=== PATIENT | female | born 1935 | race Caucasian/White ===

== ENCOUNTER 2018-02-18 17:41 | Observation (INO) | payer MEDICARE, OTHER ==
[2018-02-18] MEDS ORDERED: Aspirin 81 MG Tab.Chew PO ONE (18:19)
[2018-02-18] MEDS ORDERED: Alum Hydrox/Mag Hydrox/Simeth 30 ML, Lidocaine 2% 15 ML PO ONE ×2 (18:19)
[2018-02-18] MEDS ORDERED: Sodium Chloride 0.9% 10 ML Syringe FLUSH PRN (18:19)
--- NOTE | 2018-02-18 18:24 | EDM.PDOC ---
ED HPI GENERAL MEDICAL PROBLEM - General Chief Complaint: Chest Pain Stated Complaint: NOT FEELING GOOD TODAY Time Seen by Provider: 02/18/18 18:06 Source of Information: Reports: Patient History Limitations: Reports: No Limitations - History of Present Illness INITIAL COMMENTS - FREE TEXT/NARRATIVE: Patient is a 82-year-old female with a history of quadruple bypass who presents ED complaining of development of epigastric pressure, nausea, and fluttering sensation to her chest. She states symptoms started this morning at about 6:00 when she awoke. She's felt ill and notes that symptoms have not drastically improved throughout the course of the day. She has had a faint pressure noted to her chest. But with evaluation to the ED she has a fluttering sensation to her chest and some mild epigastric pain. She does complain of some acid reflux. Pain is not worsened with exertion, eating/drinking, palpitation, and/or taking a deep breath. At first she was unsure what the pain was from and/or leg. She questions the symptoms she currently experiencing are similar to previous heart attack that took place 10 years ago prior to bypass. She has taken all her home medications as prescribed. See list. There is no shortness of breath, radiation of pain, diarrhea, increased flatulence glass burping, dysuria, increased swelling or weight gain, PND/orthopnea, or palpitations at this time. Chest Pain Score (Numeric/FACES): 5 - Related Data Allergies Allergy/AdvReac Type Severity Reaction Status Date / Time atorvastatin [From Lipitor] Allergy Muscle Verified 02/18/18 22:40 Weakness Penicillins Allergy Rash Verified 02/18/18 22:40 ramipril Allergy Cough Verified 02/18/18 22:40 Sulfa (Sulfonamide Allergy Rash Verified 02/18/18 22:40 Antibiotics) Home Meds: Home Meds Aspirin [Shaylee Chewable Aspirin] 81 mg PO BEDTIME 01/08/14 [History] Cetirizine [ZyrTEC] 10 mg PO DAILY 01/08/14 [History] Clopidogrel [Plavix] 75 mg PO DAILY 01/08/14 [History] Isosorbide Mononitrate [Imdur] 30 mg PO DAILY 01/08/14 [History] LORazepam [Ativan] 0.5 mg PO Q8HR PRN 01/16/15 [History] Cholecalciferol (Vitamin D3) [Vitamin D3] 2,000 unit PO DAILY 05/09/16 [History] Metoprolol Tartrate 100 mg PO BID 05/09/16 [History] traMADol HCl [Tramadol HCl] 50 mg PO BID PRN 05/09/16 [History] Pantoprazole Sodium [Protonix] 40 mg PO DAILY #90 suspdr.pkt 05/10/16 [Rx] Ubidecarenone [Co Q-10] 100 mg PO DAILY 02/18/18 [History] Biotin [Hard Nails] 5,000 mcg PO DAILY 02/19/18 [History] Furosemide 10 mg PO DAILY 02/19/18 [History] Past Medical History HEENT History: Reports: Cataract, Impaired Vision Other HEENT History: wears glasses Cardiovascular History: Reports: Bypass, High Cholesterol, Hypertension, [place] Other Cardiovascular History: 4 vessel 2007 Gastrointestinal History: Reports: Chronic Constipation, Diverticulosis, GERD, Hemorrhoids, Hiatal Hernia, Other (See Below) Other Gastrointestinal History: nausea Genitourinary History: Reports: Urinary Incontinence BRAILLE CODER History: Reports: Other BRAILLE CODER History: cystocele Neurological History: Reports: CVA, Other (See Below) Other Neuro History: 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 - Infectious Disease History Infectious Disease History: Reports: Chicken Pox, Shingles - Past Surgical History HEENT Surgical History: Reports: Cataract Surgery Cardiovascular Surgical History: Reports: Coronary Artery Bypass, Varicose Musculoskeletal Surgical History: Reports: Other (See Below) Social & Family History - Tobacco Use Smoking Status *Q: Never Smoker - Caffeine Use Caffeine Use: Reports: Coffee - Recreational Drug Use Recreational Drug Use: No - Living Situation & Occupation Living situation: Reports: Occupation: Retired ED ROS GENERAL - Review of Systems Review Of Systems: ROS reveals no pertinent complaints other than HPI. ED EXAM, GENERAL - Physical Exam Exam: See Below Exam Limited By: No Limitations General Appearance: Alert, WD/WN, Mild Distress Ears: Hearing Grossly Normal Nose: Normal Inspection Throat/Mouth: Normal Inspection, Normal Oropharynx, Normal Voice, No Airway Compromise Neck: Normal Inspection, Supple, Non-Tender, Full Range of Motion Respiratory/Chest: No Respiratory Distress, Lungs Clear, Normal Breath Sounds, No Accessory Muscle Use, Chest Non-Tender Cardiovascular: Normal Peripheral Pulses, Regular Rate, Rhythm, No Murmur Peripheral Pulses: 0: Radial (R) (Radial harvest for CABG.), 2+: Radial (L) GI/Abdominal: Normal Bowel Sounds, Soft, No Organomegaly, No Distention, Tender (Faint tenderness to the epigastric region.) Back Exam: Normal Inspection Extremities: Normal Inspection, Normal Range of Motion, Non-Tender, No Pedal Edema, Normal Capillary Refill Neurological: Alert, Oriented, CN II-XII Intact, Normal Cognition, No Motor/ Sensory Deficits Psychiatric: Normal Affect, Normal Mood Skin Exam: Warm, Dry, Intact, Normal Color, No Rash Course - Vital Signs Last Recorded V/S: Last Vital Signs Temp 98.4 F 02/19/18 07:46 Pulse 78 02/19/18 10:08 Resp 18 02/19/18 05:05 BP 142/57 H 02/19/18 10:08 Pulse Ox 95 02/19/18 07:46 - Orders/Labs/Meds Orders: Active Orders 24 hr Category Date Time Status Patient Status [ADT] Routine ADT 02/18/18 20:29 Active Abdomen Series w Chest 1V [CR] Stat Exams 02/18/18 18:18 Taken CULTURE URINE [RM] Stat Lab 02/18/18 19:13 Ordered Sodium Chloride 0.9% [Saline Flush] Med 02/18/18 18:19 Active 10 ml FLUSH ASDIRECTED PRN Peripheral IV Insertion Adult [OM.PC] Routine Oth 02/18/18 18:19 Ordered Medication Orders Acetaminophen (Tylenol) 650 mg PO Q6H PRN PRN Reason: Pain/Fever Al Hydroxide/Mg Hydroxide (Mag-Al Plus) 30 ml PO Q4H PRN PRN Reason: Heartburn Last Admin: 02/19/18 02:00 Dose: 30 ml Aspirin (Halfprin) 81 mg PO BEDTIME TAWNYA Last Admin: 02/18/18 21:52 Dose: 81 mg Clopidogrel Bisulfate (Plavix) 75 mg PO DAILY TAWNYA Last Admin: 02/19/18 10:11 Dose: 75 mg Hydralazine HCl (Apresoline) 20 mg IVPUSH Q6H PRN PRN Reason: Hypertension Last Admin: 02/19/18 08:19 Dose: 20 mg Loratadine (Claritin) 10 mg PO DAILY [facility] Last Admin: 02/19/18 10:08 Dose: 10 mg Lorazepam (Ativan) 0.5 mg IVPUSH Q12H PRN PRN Reason: Anxiety Lorazepam (Ativan) 0.5 mg PO TID [facility] Last Admin: 02/19/18 10:11 Dose: 0.5 mg Metoprolol Tartrate (Lopressor) 100 mg PO BID [facility] Last Admin: 02/19/18 10:08 Dose: 100 mg Admin: 02/18/18 21:52 Dose: 100 mg Morphine Sulfate (Morphine) 1 mg IVPUSH Q8H PRN PRN Reason: Pain (moderate 4-6) Nitroglycerin (Nitrostat) 0.4 mg SL Q5M PRN PRN Reason: Chest Pain Ondansetron HCl (Zofran) 4 mg IVPUSH Q8H PRN PRN Reason: Nausea/Vomiting Pantoprazole Sodium (Protonix) 40 mg PO DAILY@0700 [facility] Last Admin: 02/19/18 06:31 Dose: 40 mg Sodium Chloride (Saline Flush) 10 ml FLUSH ASDIRECTED PRN PRN Reason: Keep Vein Open Last Admin: 02/18/18 18:33 Dose: 10 ml Temazepam (Restoril) 7.5 mg PO BEDTIME PRN PRN Reason: Insomnia Tramadol HCl (Ultram) 50 mg PO BID PRN PRN Reason: Pain Labs: Laboratory Tests 02/18/18 02/18/18 02/18/18 Range/Units 18:20 18:20 18:20 WBC 5.52 (3.98-10.04) K/mm3 RBC 4.63 (3.98-5.22) M/mm3 Hgb 14.3 (11.2-15.7) gm/L Hct 43.3 (34.1-44.9) % MCV 93.5 (79.4-94.8) fl MCH 30.9 (25.6-32.2) pg MCHC 33.0 (32.2-35.5) g/dl RDW Std Deviation 43.6 (36.4-46.3) fL Plt Count 178 L (182-369) K/mm3 MPV 10.2 (9.4-12.3) fl Neutrophils % (Manual) 75 H (40-60) % Band Neutrophils % 0 (0-10) % Lymphocytes % (Manual) 17 L (20-40) % Atypical Lymphs % 0 % Monocytes % (Manual) 7 (2-10) % Eosinophils % (Manual) 1 (0.7-5.8) % Basophils % (Manual) 0 L (0.1-1.2) Platelet Estimate Adequate Plt Morphology Comment Normal RBC Morph Comment Normal PT 10.3 (9.5-12.1) SECONDS INR 0.94 APTT 25 (24-31) SECONDS Sodium 140 (136-145) mEq/L Potassium 4.2 (3.5-5.1) mEq/L Chloride 104 (98-107) mEq/L Carbon Dioxide 29 (21-32) mEq/L Anion Gap 11.2 (5-15) BUN 28 H (7-18) mg/dL Creatinine 1.0 (0.55-1.02) mg/dL Est Cr Clr Drug Dosing 31.69 mL/min Estimated GFR (MDRD) 53 (>60) mL/min BUN/Creatinine Ratio 28.0 H (14-18) Glucose 133 H (83-115) mg/dL Calcium 9.0 (8.5-10.1) mg/dL Total Bilirubin 0.4 (0.2-1.0) mg/dL AST 18 (15-37) U/L ALT 20 (14-59) U/L Alkaline Phosphatase 70 (46-116) U/L Troponin I < 0.017 (0.00-0.056) ng/mL C-Reactive Protein < 0.2 (<1.0) mg/dL Total Protein 7.5 (6.4-8.2) g/dl Albumin 4.0 (3.4-5.0) g/dl Globulin 3.5 gm/dL Albumin/Globulin Ratio 1.1 (1-2) Lipase 151 (73-393) U/L Urine Color (Yellow) Urine Appearance (Clear) Urine pH (5.0-8.0) Ur Specific [place] (1.005-1.030) Urine Protein (Negative) Urine Glucose (UA) (Negative) Urine Ketones (Negative) Urine Occult Blood (Negative) Urine Nitrite (Negative) Urine Bilirubin (Negative) Urine Urobilinogen (0.2-1.0) Ur Leukocyte Esterase (Negative) Urine RBC (0-5) /hpf Urine WBC (0-5) /hpf Ur Epithelial Cells (0-5) /hpf Amorphous Sediment (NOT SEEN) /hpf Urine Bacteria (FEW) /hpf Urine Mucus (FEW) /hpf 02/18/18 Range/Units 19:13 WBC (3.98-10.04) K/mm3 RBC (3.98-5.22) M/mm3 Hgb (11.2-15.7) gm/L Hct (34.1-44.9) % MCV (79.4-94.8) fl MCH (25.6-32.2) pg MCHC (32.2-35.5) g/dl RDW Std Deviation (36.4-46.3) fL Plt Count (182-369) K/mm3 MPV (9.4-12.3) fl Neutrophils % (Manual) (40-60) % Band Neutrophils % (0-10) % Lymphocytes % (Manual) (20-40) % Atypical Lymphs % % Monocytes % (Manual) (2-10) % Eosinophils % (Manual) (0.7-5.8) % Basophils % (Manual) (0.1-1.2) Platelet Estimate Plt Morphology Comment RBC Morph Comment PT (9.5-12.1) SECONDS INR APTT (24-31) SECONDS Sodium (136-145) mEq/L Potassium (3.5-5.1) mEq/L Chloride (98-107) mEq/L Carbon Dioxide (21-32) mEq/L Anion Gap (5-15) BUN (7-18) mg/dL Creatinine (0.55-1.02) mg/dL Est Cr Clr Drug Dosing mL/min Estimated GFR (MDRD) (>60) mL/min BUN/Creatinine Ratio (14-18) Glucose (83-115) mg/dL Calcium (8.5-10.1) mg/dL Total Bilirubin (0.2-1.0) mg/dL AST (15-37) U/L ALT (14-59) U/L Alkaline Phosphatase (46-116) U/L Troponin I (0.00-0.056) ng/mL C-Reactive Protein (<1.0) mg/dL Total Protein (6.4-8.2) g/dl Albumin (3.4-5.0) g/dl Globulin gm/dL Albumin/Globulin Ratio (1-2) Lipase (73-393) U/L Urine Color Light yellow (Yellow) Urine Appearance Clear (Clear) Urine pH 7.0 (5.0-8.0) Ur Specific [place] 1.020 (1.005-1.030) Urine Protein Negative (Negative) Urine Glucose (UA) Negative (Negative) Urine Ketones Negative (Negative) Urine Occult Blood Negative (Negative) Urine Nitrite Negative (Negative) Urine Bilirubin Negative (Negative) Urine Urobilinogen 0.2 (0.2-1.0) Ur Leukocyte Esterase Trace H (Negative) Urine RBC Not seen (0-5) /hpf Urine WBC 5-10 H (0-5) /hpf Ur Epithelial Cells 0-5 (0-5) /hpf Amorphous Sediment Few H (NOT SEEN) /hpf Urine Bacteria Rare (FEW) /hpf Urine Mucus Not seen (FEW) /hpf Meds: Medications Generic Name Dose Route Start Last Admin Trade Name Freq PRN Reason Stop Dose Admin Acetaminophen 650 mg 02/18/18 20:52 Tylenol PO Q6H PRN Pain/Fever Al Hydroxide/Mg Hydroxide 30 ml 02/19/18 02:04 02/19/18 02:00 Mag-Al Plus PO 30 ml Q4H PRN Administration Heartburn Aspirin 81 mg 02/18/18 21:00 02/18/18 21:52 Halfprin PO 81 mg BEDTIME TAWNYA Administration Clopidogrel Bisulfate 75 mg 02/19/18 09:00 02/19/18 10:11 Plavix PO 75 mg DAILY TAWNYA Administration Hydralazine HCl 20 mg 02/19/18 06:23 02/19/18 08:19 Apresoline IVPUSH 20 mg Q6H PRN Administration Hypertension Loratadine 10 mg 02/19/18 09:00 02/19/18 10:08 Claritin PO 10 mg DAILY TAWNYA Administration Lorazepam 0.5 mg 02/18/18 20:49 Ativan IVPUSH Q12H PRN Anxiety Lorazepam 0.5 mg 02/19/18 15:00 02/19/18 10:11 Ativan PO 0.5 mg TID TAWNYA Administration Metoprolol Tartrate 100 mg 02/18/18 21:00 02/19/18 10:08 Lopressor PO 100 mg BID TAWNYA Administration Morphine Sulfate 1 mg 02/18/18 20:51 Morphine IVPUSH Q8H PRN Pain (moderate 4-6) Nitroglycerin 0.4 mg 02/18/18 20:45 Nitrostat SL Q5M PRN Chest Pain Ondansetron HCl 4 mg 02/18/18 20:49 Zofran IVPUSH Q8H PRN Nausea/Vomiting Pantoprazole Sodium 40 mg 02/19/18 07:00 02/19/18 06:31 Protonix PO 40 mg DAILY@0700 TAWNYA Administration Sodium Chloride 10 ml 02/18/18 18:19 02/18/18 18:33 Saline Flush FLUSH 10 ml ASDIRECTED PRN Administration Keep Vein Open Temazepam 7.5 mg 02/18/18 20:51 Restoril PO BEDTIME PRN Insomnia Tramadol HCl 50 mg 02/19/18 09:15 Ultram PO BID PRN Pain Discontinued Medications Generic Name Dose Route Start Last Admin Trade Name Fre PRN Reason Stop Dose Admin Amlodipine Besylate 10 mg 02/19/18 06:22 02/19/18 06:31 Norvasc PO 02/19/18 06:23 10 mg NOW STA Administration Aspirin 243 mg 02/18/18 18:19 02/18/18 18:31 Aspirin PO 02/18/18 18:20 243 mg ONETIME ONE Administration Al Hydroxide/Mg Hydroxide 30 0 ml 02/18/18 18:19 02/18/18 18:31 ml/ Lidocaine HCl 15 ml PO 02/18/18 18:20 45 ml ONETIME ONE Administration Enoxaparin Sodium 55 mg 02/18/18 20:44 02/18/18 21:53 Lovenox SUBCUT 02/18/18 20:45 55 mg ONETIME ONE Administration Lactated Ringer's 1,000 mls @ 75 mls/hr 02/18/18 21:00 02/18/18 21:48 Ringers, Lactated IV 02/19/18 05:00 75 mls/hr ASDIRECTED TWANYA Administration Lorazepam 0.5 mg 02/18/18 20:53 Ativan PO Q12H PRN Anxiety Nitroglycerin 1 gm 02/18/18 20:15 02/18/18 20:30 Nitro-Bid 2% TOP 02/18/18 20:16 1 gm ONETIME ONE Administration Non-Formulary Medication 0.5 mg 02/18/18 20:42 Lorazepam [Ativan] PO Q8HR PRN Anxiety Non-Formulary Medication 100 mg 02/19/18 09:00 Ubidecarenone PO DAILY TAWNYA Ondansetron HCl 4 mg 02/18/18 20:05 02/18/18 20:10 Zofran IVPUSH 02/18/18 20:06 Not Given ONETIME ONE Tramadol HCl 50 mg 02/18/18 20:42 Ultram PO Q8H PRN Pain - Re-Assessments/Exams Free Text/Narrative Re-Assessment/Exam: EKG sinus rhythm at a rate of [address] changes noted. IV established with aspirin and GI cocktail. Initial labs and studies include: CBC, chem 14, CRP, lipase, coag studies, troponin, UA, an x-ray of the chest with abdomen series. Chest x-ray and abdominal series no acute findings noted. Reviewed with Dr. Shore. Final interpretation is pending. [address] Stratton. She will see the patient in the E.D. 2004 Patient and family have decided to be admitted to the hospital here for further evaluation testing. Patient is pain free. Feels flutter in chest and continues to be nauseated with one episode of emesis. 2005 Ordered zofran 4mg IVP. Patient has refused the zofran. Dr. Stratton requests 1/2 nitro paste be placed. Patients BP is 200/s. Manual will be obtained. 2036 Manual BP 164/90 prior to starting nitro paste. MCG completed. Admission orders placed by nursing staff. Departure - Departure Time of Disposition: 19:45 Disposition: Admitted As Inpatient 67 Condition: Good Clinical Impression: Chest pain, rule out acute myocardial infarction, ASB (asymptomatic bacteriuria ) Nausea & vomiting Qualifiers: Vomiting type: unspecified Vomiting Intractability: non-intractable Qualified Code(s): R11.2 - Nausea with vomiting, unspecified - My Orders Last 24 Hours: My Active Orders 02/18/18 18:18 Abdomen Series w Chest 1V [CR] Stat 02/18/18 18:19 Sodium Chloride 0.9% [Saline Flush] 10 ml FLUSH ASDIRECTED PRN Peripheral IV Insertion Adult [OM.PC] Routine 02/18/18 19:13 CULTURE URINE [RM] Stat 02/18/18 20:29 Patient Status [ADT] Routine - Assessment/Plan Last 24 Hours: My Active Orders 02/18/18 18:18 Abdomen Series w Chest 1V [CR] Stat 02/18/18 18:19 Sodium Chloride 0.9% [Saline Flush] 10 ml FLUSH ASDIRECTED PRN Peripheral IV Insertion Adult [OM.PC] Routine 02/18/18 19:13 CULTURE URINE [RM] Stat 02/18/18 20:29 Patient Status [ADT] Routine
[2018-02-18] MEDS ORDERED: Ondansetron 4 MG/2 ML SDV IVPUSH ONE (20:05)
[2018-02-18] MEDS ORDERED: Nitroglycerin 2% Oint 1 GM UD Packet TOP ONE (20:15)
[2018-02-18] MEDS ORDERED: traMADol 50 MG Tab PO PRN (20:42)
[2018-02-18] MEDS ORDERED: LORAZEPAM 0.5 MG PO PRN (20:42)
--- NOTE | 2018-02-18 20:42 | PCM.HP ---
H&P History of Present Illness - General Date of Service: 02/18/18 Admit Problem/Dx: Admission Diagnosis/Problem Admission Diagnosis/Problem Chest pain Source of Information: Patient, Family, Provider History Limitations: Reports: No Limitations - History of Present Illness Initial Comments - Free Text/Narative: 82-year-old female PMH of CAD S/P CABG, 10 years [employer] presents to the ED complaining of chest pressure for several hours. Associated with nausea, and "fluttering sensation" in her chest. She states symptoms started this morning at about 6:00 when she awoke. She has noted a light pressure sensation in her chest. The symptoms she currently experiencing are similar to previous heart attack that took place 10 years ago prior to bypass. She has taken all her home medications as prescribed. 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 Onset of Symptoms: Reports: Sudden Symptom Onset Date: 02/18/18 Duration of Symptoms: Reports: Hour(s): Location: Reports: Chest Quality: Reports: Same as Previous Episode Severity: Moderate Improves with: Reports: Medication Worsens with: Reports: None Associated Symptoms: Reports: No Other Symptoms, Nausea/Vomiting, Shortness of Breath, Weakness Chest Pain Score (Numeric/FACES): 5 - Related Data Allergies/Adverse Reactions: Allergies Allergy/AdvReac Type Severity Reaction Status Date / Time atorvastatin [From Lipitor] Allergy Muscle Verified 02/18/18 22:40 Weakness Penicillins Allergy Rash Verified 02/18/18 22:40 ramipril Allergy Cough Verified 02/18/18 22:40 Sulfa (Sulfonamide Allergy Rash Verified 02/18/18 22:40 Antibiotics) Home Medications: Home Meds Aspirin [Shaylee Chewable Aspirin] 81 mg PO BEDTIME 01/08/14 [History] Cetirizine [ZyrTEC] 10 mg PO DAILY 01/08/14 [History] Clopidogrel [Plavix] 75 mg PO DAILY 01/08/14 [History] Isosorbide Mononitrate [Imdur] 30 mg PO DAILY 01/08/14 [History] LORazepam [Ativan] 0.5 mg PO Q8HR PRN 01/16/15 [History] Cholecalciferol (Vitamin D3) [Vitamin D3] 2,000 unit PO DAILY 05/09/16 [History] Metoprolol Tartrate 100 mg PO BID 05/09/16 [History] traMADol HCl [Tramadol HCl] 50 mg PO BID PRN 05/09/16 [History] Pantoprazole Sodium [Protonix] 40 mg PO DAILY #90 suspdr.pkt 05/10/16 [Rx] Ubidecarenone [Co Q-10] 100 mg PO DAILY 02/18/18 [History] Biotin [Hard Nails] 5,000 mcg PO DAILY 02/19/18 [History] Furosemide 10 mg PO DAILY 02/19/18 [History] Past Medical History HEENT History: Reports: Cataract, Impaired Vision Other HEENT History: wears glasses Cardiovascular History: Reports: Bypass, High Cholesterol, Hypertension, [place] Other Cardiovascular History: 4 vessel 2007 Gastrointestinal History: Reports: Chronic Constipation, Diverticulosis, GERD, Hemorrhoids, Hiatal Hernia, Other (See Below) Other Gastrointestinal History: nausea Genitourinary History: Reports: Urinary Incontinence [employer] History: Reports: Other OB/BYN History: cystocele Neurological History: Reports: CVA, Other (See Below) Other Neuro History: 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 - Infectious Disease History Infectious Disease History: Reports: Chicken Pox, Shingles - Past Surgical History HEENT Surgical History: Reports: Cataract Surgery Cardiovascular Surgical History: Reports: Coronary Artery Bypass, Varicose Musculoskeletal Surgical History: Reports: Other (See Below) Social & Family History - Tobacco Use Smoking Status *Q: Never Smoker - Caffeine Use Caffeine Use: Reports: Coffee - Recreational Drug Use Recreational Drug Use: No - Living Situation & Occupation Living situation: Reports: Occupation: Retired H&P Review of Systems - Review of Systems: Review Of Systems: See Below General: Reports: Weakness, Fatigue, Decreased Appetite HEENT: Reports: No Symptoms, Headaches Pulmonary: Reports: Shortness of Breath Cardiovascular: Reports: Chest Pain, Dyspnea on Exertion, Lightheadedness Gastrointestinal: Reports: Nausea Genitourinary: Reports: No Symptoms Musculoskeletal: Reports: Back Pain, Joint Swelling. Denies: No Symptoms Skin: Reports: No Symptoms Psychiatric: Reports: No Symptoms Neurological: Reports: No Symptoms Hematologic/Lymphatic: Reports: No Symptoms Immunologic: Reports: No Symptoms Exam - Exam Exam: See Below - Vital Signs Vital Signs: Last Vital Signs Temp 36.1 C 02/18/18 17:49 Pulse 73 02/18/18 17:49 Resp 20 02/18/18 17:49 BP 187/71 H 02/18/18 20:25 Pulse Ox 99 02/18/18 17:49 Weight: 54.431 kg - Exam Quality Assessment: Supplemental Oxygen, Skin Breakdown General: Alert, Oriented, Cooperative HEENT: Conjunctiva Clear, Pupils Equal, Pupils Reactive, TMs Clear Neck: Trachea Midline Lungs: Normal Respiratory Effort Cardiovascular: Regular Rate, Bradycardia GI/Abdominal Exam: Normal Bowel Sounds, Soft, Non-Tender, No Organomegaly, No Distention (Female) Exam: Deferred Rectal (Female) Exam: Deferred Back Exam: Normal Inspection Extremities: Normal Inspection Skin: Warm, Dry Neurological: Cranial Nerves Intact, Reflexes Equal Bilateral Neuro Extensive - Mental Status: Alert, Oriented x3 Neuro Extensive - Motor, Sensory, Reflexes: CN II-XII Intact Psychiatric: Alert, Anxious - Patient Data Lab Results Last 24 hrs: Laboratory Results - last 24 hr 02/18/18 02/18/18 02/18/18 Range/Units 18:20 18:20 18:20 WBC 5.52 (3.98-10.04) K/mm3 RBC 4.63 (3.98-5.22) M/mm3 Hgb 14.3 (11.2-15.7) gm/L Hct 43.3 (34.1-44.9) % MCV 93.5 (79.4-94.8) fl MCH 30.9 (25.6-32.2) pg MCHC 33.0 (32.2-35.5) g/dl RDW Std Deviation 43.6 (36.4-46.3) fL Plt Count 178 L (182-369) K/mm3 MPV 10.2 (9.4-12.3) fl Neutrophils % (Manual) 75 H (40-60) % Band Neutrophils % 0 (0-10) % Lymphocytes % (Manual) 17 L (20-40) % Atypical Lymphs % 0 % Monocytes % (Manual) 7 (2-10) % Eosinophils % (Manual) 1 (0.7-5.8) % Basophils % (Manual) 0 L (0.1-1.2) Platelet Estimate Adequate Plt Morphology Comment Normal RBC Morph Comment Normal PT 10.3 (9.5-12.1) SECONDS INR 0.94 APTT 25 (24-31) SECONDS Sodium 140 (136-145) mEq/L Potassium 4.2 (3.5-5.1) mEq/L Chloride 104 (98-107) mEq/L Carbon Dioxide 29 (21-32) mEq/L Anion Gap 11.2 (5-15) BUN 28 H (7-18) mg/dL Creatinine 1.0 (0.55-1.02) mg/dL Est Cr Clr Drug Dosing 31.69 mL/min Estimated GFR (MDRD) 53 (>60) mL/min BUN/Creatinine Ratio 28.0 H (14-18) Glucose 133 H (83-115) mg/dL Calcium 9.0 (8.5-10.1) mg/dL Total Bilirubin 0.4 (0.2-1.0) mg/dL AST 18 (15-37) U/L ALT 20 (14-59) U/L Alkaline Phosphatase 70 (46-116) U/L Troponin I < 0.017 (0.00-0.056) ng/mL C-Reactive Protein < 0.2 (<1.0) mg/dL Total Protein 7.5 (6.4-8.2) g/dl Albumin 4.0 (3.4-5.0) g/dl Globulin 3.5 gm/dL Albumin/Globulin Ratio 1.1 (1-2) Lipase 151 (73-393) U/L Urine Color (Yellow) Urine Appearance (Clear) Urine pH (5.0-8.0) Ur Specific [place] (1.005-1.030) Urine Protein (Negative) Urine Glucose (UA) (Negative) Urine Ketones (Negative) Urine Occult Blood (Negative) Urine Nitrite (Negative) Urine Bilirubin (Negative) Urine Urobilinogen (0.2-1.0) Ur Leukocyte Esterase (Negative) Urine RBC (0-5) /hpf Urine WBC (0-5) /hpf Ur Epithelial Cells (0-5) /hpf Amorphous Sediment (NOT SEEN) /hpf Urine Bacteria (FEW) /hpf Urine Mucus (FEW) /hpf 08/11/18 Range/Units 19:13 WBC (3.98-10.04) K/mm3 RBC (3.98-5.22) M/mm3 Hgb (11.2-15.7) gm/L Hct (34.1-44.9) % MCV (79.4-94.8) fl MCH (25.6-32.2) pg MCHC (32.2-35.5) g/dl RDW Std Deviation (36.4-46.3) fL Plt Count (182-369) K/mm3 MPV (9.4-12.3) fl Neutrophils % (Manual) (40-60) % Band Neutrophils % (0-10) % Lymphocytes % (Manual) (20-40) % Atypical Lymphs % % Monocytes % (Manual) (2-10) % Eosinophils % (Manual) (0.7-5.8) % Basophils % (Manual) (0.1-1.2) Platelet Estimate Plt Morphology Comment RBC Morph Comment PT (9.5-12.1) SECONDS INR APTT (24-31) SECONDS Sodium (136-145) mEq/L Potassium (3.5-5.1) mEq/L Chloride (98-107) mEq/L Carbon Dioxide (21-32) mEq/L Anion Gap (5-15) BUN (7-18) mg/dL Creatinine (0.55-1.02) mg/dL Est Cr Clr Drug Dosing mL/min Estimated GFR (MDRD) (>60) mL/min BUN/Creatinine Ratio (14-18) Glucose (83-115) mg/dL Calcium (8.5-10.1) mg/dL Total Bilirubin (0.2-1.0) mg/dL AST (15-37) U/L ALT (14-59) U/L Alkaline Phosphatase (46-116) U/L Troponin I (0.00-0.056) ng/mL C-Reactive Protein (<1.0) mg/dL Total Protein (6.4-8.2) g/dl Albumin (3.4-5.0) g/dl Globulin gm/dL Albumin/Globulin Ratio (1-2) Lipase (73-393) U/L Urine Color Light yellow (Yellow) Urine Appearance Clear (Clear) Urine pH 7.0 (5.0-8.0) Ur Specific [place] 1.020 (1.005-1.030) Urine Protein Negative (Negative) Urine Glucose (UA) Negative (Negative) Urine Ketones Negative (Negative) Urine Occult Blood Negative (Negative) Urine Nitrite Negative (Negative) Urine Bilirubin Negative (Negative) Urine Urobilinogen 0.2 (0.2-1.0) Ur Leukocyte Esterase Trace H (Negative) Urine RBC Not seen (0-5) /hpf Urine WBC 5-10 H (0-5) /hpf Ur Epithelial Cells 0-5 (0-5) /hpf Amorphous Sediment Few H (NOT SEEN) /hpf Urine Bacteria Rare (FEW) /hpf Urine Mucus Not seen (FEW) /hpf Result Diagrams: 02/19/18 07:14 02/19/18 07:14 Problem List Initiated/Reviewed/Updated: Yes Orders Last 24hrs: Active Orders 24 hr Category Date Time Status Patient Status [ADT] Routine ADT 02/18/18 20:29 Active EKG 12 Lead [EKG Documentation Completion] [RC] STAT Care 02/18/18 18:14 Active Peripheral IV Care [RC] . DIRECTED Care 02/18/18 18:19 Active Abdomen Series w Chest 1V [CR] Stat Exams 02/18/18 18:18 Taken CULTURE URINE [RM] Stat Lab 02/18/18 19:13 Ordered Sodium Chloride 0.9% [Saline Flush] Med 02/18/18 18:19 Active 10 ml FLUSH ASDIRECTED PRN Peripheral IV Insertion Adult [OM.PC] Routine Oth 02/18/18 18:19 Ordered Medication Orders Sodium Chloride (Saline Flush) 10 ml FLUSH ASDIRECTED PRN PRN Reason: Keep Vein Open Last Admin: 02/18/18 18:33 Dose: 10 ml Assessment/Plan Comment:: Impression: Atypical Chest Pain, hx of CAD reportedly [place] S/P CABG x4, remote stress test Functional capacity, query METS 4 S/P CVA after cardiac cath 10 years ago; minimal deficits Chronic HTN HLD, intolerant to statins GERD General Anxiety Disorder Urinary Incontinence Plan: Heart Healthy diet FLP Chest pain protocol Lovenox NTG sl/transdermal Anti-anxiety Home meds Pharmaceutical stress test
[2018-02-18] MEDS ORDERED: Enoxaparin 60 MG/0.6 ML Syringe SUBCUT ONE (20:44)
[2018-02-18] MEDS ORDERED: Nitroglycerin 0.4 MG Tab.SL SL PRN (20:45)
[2018-02-18] MEDS ORDERED: LORazepam 2 MG/ML SDV IVPUSH PRN (20:49)
[2018-02-18] MEDS ORDERED: Ondansetron 4 MG/2 ML SDV IVPUSH PRN (20:49)
[2018-02-18] MEDS ORDERED: Morphine 2 MG/ML Syringe IVPUSH PRN (20:51)
[2018-02-18] MEDS ORDERED: Temazepam 7.5 MG Cap PO PRN (20:51)
[2018-02-18] MEDS ORDERED: Acetaminophen 325 MG Tab PO PRN (20:52)
[2018-02-18] MEDS ORDERED: LORazepam 0.5 MG Tab PO PRN (20:53)
[2018-02-18] MEDS ORDERED: Lactated Ringers 1,000 ML IV SCH (21:00)
[2018-02-18] MEDS: Aspirin 81 MG Tab.EC PO SCH (21:52)
[2018-02-18] MEDS: METOPROLOL TARTRATE 100 MG PO SCH (21:52)
[2018-02-19] MEDS ORDERED: Aluminum Hydroxide/Magnesium Hydroxide/Simethicone Susp 30 ML Cup PO PRN (02:04)
[2018-02-19] MEDS ORDERED: amLODIPine 10 MG Tab PO STA (06:22)
[2018-02-19] MEDS ORDERED: hydrALAZINE 20 MG/ML SDV IVPUSH PRN (06:23)
[2018-02-19] MEDS: PANTOPRAZOLE 40 MG PO SCH (06:31)
[2018-02-19] MEDS ORDERED: Non-Formulary Medication 1 Each (Cetirizine 10 MG) PO SCH (09:00)
[2018-02-19] MEDS ORDERED: Non-Formulary Medication 1 Each (Ubidecarenone 100 MG) PO SCH (09:00)
[2018-02-19] MEDS ORDERED: TRAMADOL 50 MG PO PRN (09:15)
[2018-02-19] MEDS: Loratadine 10 MG Tab PO SCH (10:08)
[2018-02-19] MEDS: METOPROLOL TARTRATE 100 MG PO SCH (10:08)
[2018-02-19] MEDS: LORAZEPAM 0.5 MG PO SCH ×3 (10:11→21:01)
[2018-02-19] MEDS: CLOPIDOGREL 75 MG PO SCH (10:11)
--- NOTE | 2018-02-19 13:38 | PCM.PN ---
- General Info Date of Service: 02/19/18 Functional Status: Reports: Pain Controlled, Tolerating Diet, Ambulating - Review of Systems General: Reports: Weakness HEENT: Reports: No Symptoms Pulmonary: Reports: No Symptoms Cardiovascular: Reports: Palpitations Gastrointestinal: Reports: No Symptoms Genitourinary: Reports: No Symptoms Musculoskeletal: Reports: No Symptoms Skin: Reports: No Symptoms Neurological: Reports: No Symptoms Psychiatric: Reports: No Symptoms - Patient Data Vitals - Most Recent: Last Vital Signs Temp 37.1 C 02/19/18 12:31 Pulse 73 02/19/18 12:31 Resp 20 02/19/18 12:31 BP 116/81 02/19/18 12:31 Pulse Ox 98 02/19/18 12:31 Weight - Most Recent: 54.431 kg I&O - Last 24 Hours: Intake & Output 02/18/18 02/19/18 02/19/18 22:59 06:59 14:59 Intake Total 648 Output Total 2000 Balance -1352 Lab Results Last 24 Hours: Laboratory Results - last 24 hr 02/18/18 02/18/18 02/18/18 Range/Units 18:20 18:20 18:20 WBC 5.52 (3.98-10.04) K/mm3 RBC 4.63 (3.98-5.22) M/mm3 Hgb 14.3 (11.2-15.7) gm/L Hct 43.3 (34.1-44.9) % MCV 93.5 (79.4-94.8) fl MCH 30.9 (25.6-32.2) pg MCHC 33.0 (32.2-35.5) g/dl RDW Std Deviation 43.6 (36.4-46.3) fL Plt Count 178 L (182-369) K/mm3 MPV 10.2 (9.4-12.3) fl Neut % (Auto) (34.0-71.1) % Lymph % (Auto) (19.3-51.7) % [place] % (Auto) (4.7-12.5) % Eos % (Auto) (0.7-5.8) Baso % (Auto) (0.1-1.2) % Neut # (Auto) (1.56-6.13) K/mm3 Lymph # (Auto) (1.18-3.74) K/mm3 [place] # (Auto) (0.24-0.36) K/mm3 Eos # (Auto) (0.04-0.36) K/mm3 Baso # (Auto) (0.01-0.08) K/mm3 Neutrophils % (Manual) 75 H (40-60) % Band Neutrophils % 0 (0-10) % Lymphocytes % (Manual) 17 L (20-40) % Atypical Lymphs % 0 % Monocytes % (Manual) 7 (2-10) % Eosinophils % (Manual) 1 (0.7-5.8) % Basophils % (Manual) 0 L (0.1-1.2) Platelet Estimate Adequate Plt Morphology Comment Normal RBC Morph Comment Normal PT 10.3 (9.5-12.1) SECONDS INR 0.94 APTT 25 (24-31) SECONDS Sodium 140 (136-145) mEq/L Potassium 4.2 (3.5-5.1) mEq/L Chloride 104 (98-107) mEq/L Carbon Dioxide 29 (21-32) mEq/L Anion Gap 11.2 (5-15) BUN 28 H (7-18) mg/dL Creatinine 1.0 (0.55-1.02) mg/dL Est Cr Clr Drug Dosing 31.69 mL/min Estimated GFR (MDRD) 53 (>60) mL/min BUN/Creatinine Ratio 28.0 H (14-18) Glucose 133 H (83-115) mg/dL Calcium 9.0 (8.5-10.1) mg/dL Magnesium (1.8-2.4) mg/dl Total Bilirubin 0.4 (0.2-1.0) mg/dL AST 18 (15-37) U/L ALT 20 (14-59) U/L Alkaline Phosphatase 70 (46-116) U/L Troponin I < 0.017 (0.00-0.056) ng/mL C-Reactive Protein < 0.2 (<1.0) mg/dL Total Protein 7.5 (6.4-8.2) g/dl Albumin 4.0 (3.4-5.0) g/dl Globulin 3.5 gm/dL Albumin/Globulin Ratio 1.1 (1-2) Lipase 151 (73-393) U/L Urine Color (Yellow) Urine Appearance (Clear) Urine pH (5.0-8.0) Ur Specific [place] (1.005-1.030) Urine Protein (Negative) Urine Glucose (UA) (Negative) Urine Ketones (Negative) Urine Occult Blood (Negative) Urine Nitrite (Negative) Urine Bilirubin (Negative) Urine Urobilinogen (0.2-1.0) Ur Leukocyte Esterase (Negative) Urine RBC (0-5) /hpf Urine WBC (0-5) /hpf Ur Epithelial Cells (0-5) /hpf Amorphous Sediment (NOT SEEN) /hpf Urine Bacteria (FEW) /hpf Urine Mucus (FEW) /hpf 02/18/18 02/19/18 02/19/18 Range/Units 19:13 07:14 07:14 WBC 4.65 (3.98-10.04) K/mm3 RBC 4.78 (3.98-5.22) M/mm3 Hgb 14.9 (11.2-15.7) gm/L Hct 44.7 (34.1-44.9) % MCV 93.5 (79.4-94.8) fl MCH 31.2 (25.6-32.2) pg MCHC 33.3 (32.2-35.5) g/dl RDW Std Deviation 43.3 (36.4-46.3) fL Plt Count 182 (182-369) K/mm3 MPV 9.9 (9.4-12.3) fl Neut % (Auto) 70.1 (34.0-71.1) % Lymph % (Auto) 19.6 (19.3-51.7) % [place] % (Auto) 9.9 (4.7-12.5) % Eos % (Auto) 0.2 L (0.7-5.8) Baso % (Auto) 0.2 (0.1-1.2) % Neut # (Auto) 3.26 (1.56-6.13) K/mm3 Lymph # (Auto) 0.91 L (1.18-3.74) K/mm3 [place] # (Auto) 0.46 H (0.24-0.36) K/mm3 Eos # (Auto) 0.01 L (0.04-0.36) K/mm3 Baso # (Auto) 0.01 (0.01-0.08) K/mm3 Neutrophils % (Manual) (40-60) % Band Neutrophils % (0-10) % Lymphocytes % (Manual) (20-40) % Atypical Lymphs % % Monocytes % (Manual) (2-10) % Eosinophils % (Manual) (0.7-5.8) % Basophils % (Manual) (0.1-1.2) Platelet Estimate Plt Morphology Comment RBC Morph Comment PT (9.5-12.1) SECONDS INR APTT (24-31) SECONDS Sodium 144 (136-145) mEq/L Potassium 3.9 (3.5-5.1) mEq/L Chloride 107 (98-107) mEq/L Carbon Dioxide 28 (21-32) mEq/L Anion Gap 12.9 (5-15) BUN 18 (7-18) mg/dL Creatinine 0.9 (0.55-1.02) mg/dL Est Cr Clr Drug Dosing 35.21 mL/min Estimated GFR (MDRD) > 60 (>60) mL/min BUN/Creatinine Ratio 20.0 H (14-18) Glucose 122 H (83-115) mg/dL Calcium 9.0 (8.5-10.1) mg/dL Magnesium 2.3 (1.8-2.4) mg/dl Total Bilirubin (0.2-1.0) mg/dL AST (15-37) U/L ALT (14-59) U/L Alkaline Phosphatase (46-116) U/L Troponin I < 0.017 (0.00-0.056) ng/mL C-Reactive Protein < 0.2 (<1.0) mg/dL Total Protein (6.4-8.2) g/dl Albumin (3.4-5.0) g/dl Globulin gm/dL Albumin/Globulin Ratio (1-2) Lipase (73-393) U/L Urine Color Light yellow (Yellow) Urine Appearance Clear (Clear) Urine pH 7.0 (5.0-8.0) Ur Specific [place] 1.020 (1.005-1.030) Urine Protein Negative (Negative) Urine Glucose (UA) Negative (Negative) Urine Ketones Negative (Negative) Urine Occult Blood Negative (Negative) Urine Nitrite Negative (Negative) Urine Bilirubin Negative (Negative) Urine Urobilinogen 0.2 (0.2-1.0) Ur Leukocyte Esterase Trace H (Negative) Urine RBC Not seen (0-5) /hpf Urine WBC 5-10 H (0-5) /hpf Ur Epithelial Cells 0-5 (0-5) /hpf Amorphous Sediment Few H (NOT SEEN) /hpf Urine Bacteria Rare (FEW) /hpf Urine Mucus Not seen (FEW) /hpf [place] Results Last 24 Hours: Microbiology 02/18/18 19:13 Urine Culture - Preliminary Urine, Clean Catch MIXED FADI DAY 1 Med Orders - Current: Current Medications Acetaminophen (Tylenol) 650 mg PO Q6H PRN PRN Reason: Pain/Fever Al Hydroxide/Mg Hydroxide (Mag-Al Plus) 30 ml PO Q4H PRN PRN Reason: Heartburn Last Admin: 02/19/18 02:00 Dose: 30 ml Amlodipine Besylate (Norvasc) 10 mg PO BEDTIME [facility] Aspirin (Halfprin) 81 mg PO BEDTIME [facility] Last Admin: 02/18/18 21:52 Dose: 81 mg Clopidogrel Bisulfate (Plavix) 75 mg PO DAILY [facility] Last Admin: 02/19/18 10:11 Dose: 75 mg Hydralazine HCl (Apresoline) 20 mg IVPUSH Q6H PRN PRN Reason: Hypertension Last Admin: 02/19/18 08:19 Dose: 20 mg Loratadine (Claritin) 10 mg PO DAILY [facility] Last Admin: 02/19/18 10:08 Dose: 10 mg Lorazepam (Ativan) 0.5 mg PO TID [facility] Last Admin: 02/19/18 10:11 Dose: 0.5 mg Metoprolol Tartrate (Lopressor) 100 mg PO BID [facility] Last Admin: 02/19/18 10:08 Dose: 100 mg Morphine Sulfate (Morphine) 1 mg IVPUSH Q8H PRN PRN Reason: Pain (moderate 4-6) Nitroglycerin (Nitrostat) 0.4 mg SL Q5M PRN PRN Reason: Chest Pain Ondansetron HCl (Zofran) 4 mg IVPUSH Q8H PRN PRN Reason: Nausea/Vomiting Pantoprazole Sodium (Protonix) 40 mg PO DAILY@0700 [facility] Last Admin: 02/19/18 06:31 Dose: 40 mg Sodium Chloride (Saline Flush) 10 ml FLUSH ASDIRECTED PRN PRN Reason: Keep Vein Open Last Admin: 02/18/18 18:33 Dose: 10 ml Temazepam (Restoril) 7.5 mg PO BEDTIME PRN PRN Reason: Insomnia Tramadol HCl (Ultram) 50 mg PO BID PRN PRN Reason: Pain Triamterene/HCTZ (Dyazide 25-37.5 Mg) 1 each PO DAILY TAWNYA Discontinued Medications Amlodipine Besylate (Norvasc) 10 mg PO NOW STA Stop: 02/19/18 06:23 Last Admin: 02/19/18 06:31 Dose: 10 mg Aspirin (Aspirin) 243 mg PO ONETIME ONE Stop: 02/18/18 18:20 Last Admin: 02/18/18 18:31 Dose: 243 mg Al Hydroxide/Mg Hydroxide 30 (ml/ Lidocaine HCl 15 ml) 0 ml PO ONETIME ONE Stop: 02/18/18 18:20 Last Admin: 02/18/18 18:31 Dose: 45 ml Enoxaparin Sodium (Lovenox) 55 mg SUBCUT ONETIME ONE Stop: 02/18/18 20:45 Last Admin: 02/18/18 21:53 Dose: 55 mg Lactated Ringer's (Ringers, Lactated) 1,000 mls @ 75 mls/hr IV ASDIRECTED TAWNYA Stop: 02/19/18 05:00 Last Admin: 02/18/18 21:48 Dose: 75 mls/hr Lorazepam (Ativan) 0.5 mg IVPUSH Q12H PRN PRN Reason: Anxiety Lorazepam (Ativan) 0.5 mg PO Q12H PRN PRN Reason: Anxiety Nitroglycerin (Nitro-Bid 2%) 1 gm TOP ONETIME ONE Stop: 02/18/18 20:16 Last Admin: 02/18/18 20:30 Dose: 1 gm Non-Formulary Medication (Lorazepam [Ativan]) 0.5 mg PO Q8HR PRN PRN Reason: Anxiety Non-Formulary Medication (Ubidecarenone) 100 mg PO DAILY [facility] Ondansetron HCl (Zofran) 4 mg IVPUSH ONETIME ONE Stop: 02/18/18 20:06 Last Admin: 02/18/18 20:10 Dose: Not Given Tramadol HCl (Ultram) 50 mg PO Q8H PRN PRN Reason: Pain - Exam Quality Assessment: Supplemental Oxygen, DVT Prophylaxis General: Alert, Oriented, Cooperative, No Acute Distress HEENT: Pupils Equal, Pupils Reactive, EOMI Neck: Trachea Midline, No JVD Lungs: Normal Respiratory Effort Cardiovascular: Regular Rate, Bradycardia GI/Abdominal Exam: Normal Bowel Sounds, Soft, Non-Tender, No Organomegaly, No Distention (Female) Exam: Deferred Back Exam: Full Range of Motion Extremities: Normal Inspection, Non-Tender, Normal Capillary Refill Skin: Warm Neurological: No New Focal Deficit Psy/Mental Status: Alert, Normal Affect, Normal Mood - Problem List Review Problem List Initiated/Reviewed/Updated: Yes - My Orders Last 24 Hours: My Active Orders 02/18/18 20:45 Nitroglycerin [Nitrostat] 0.4 mg SL Q5M PRN 02/18/18 20:49 Ondansetron [Zofran] 4 mg IVPUSH Q8H PRN 02/18/18 20:51 Morphine 1 mg IVPUSH Q8H PRN Temazepam [Restoril] 7.5 mg PO BEDTIME PRN 02/18/18 20:52 Acetaminophen [Tylenol] 650 mg PO Q6H PRN 02/18/18 21:00 Aspirin [Halfprin] 81 mg PO BEDTIME Metoprolol Tartrate [Lopressor] 100 mg PO BID 02/18/18 22:27 Code Status [Resuscitation Status] Routine 02/18/18 Dinner Full Liquid Diet [DIET] 02/19/18 02:04 Alum Hydrox/Mag Hydrox/Simeth [Mag-Al Plus] 30 ml PO Q4H PRN 02/19/18 06:23 hydrALAZINE [Apresoline] 20 mg IVPUSH Q6H PRN 02/19/18 07:00 Pantoprazole [ProTONIX] 40 mg PO DAILY@0700 02/19/18 09:00 Clopidogrel [Plavix] 75 mg PO DAILY Loratadine [Claritin] 10 mg PO DAILY 02/19/18 09:15 traMADol [Ultram] 50 mg PO BID PRN 02/19/18 09:51 Bedrest Bathroom Privileges [RC] ASDIRECTED 02/19/18 13:37 Consult to Dietary [Consult to Panel Maker] [CONS] Routine 02/19/18 15:00 LORazepam [Ativan] 0.5 mg PO TID 02/19/18 18:00 TROPONIN I [CHEM] Routine 02/19/18 21:00 amLODIPine [Norvasc] 10 mg PO BEDTIME 02/20/18 05:00 LIPID PANEL [CHEM] Routine 02/20/18 09:00 HCTZ/Triamterene [Dyazide 25-37.5 MG] 1 each PO DAILY - Plan Plan:: Impression: Atypical Chest Pain, hx of CAD reportedly CT S/P CABG x4, remote stress test Functional capacity, query METS 4 S/P 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
[2018-02-19] MEDS: Enoxaparin 40 MG/0.4 ML Syringe SUBCUT SCH (14:26)
[2018-02-19] MEDS ORDERED: amLODIPine 10 MG Tab PO SCH (21:00)
[2018-02-19] MEDS: Aspirin 81 MG Tab.EC PO SCH (21:01)
[2018-02-20] MEDS: PANTOPRAZOLE 40 MG PO SCH (06:55)
[2018-02-20] MEDS ORDERED: Hydrochlorothiazide/Triamterene 25-37.5 MG Cap PO SCH (09:00)
[2018-02-20] MEDS: CLOPIDOGREL 75 MG PO SCH (10:03)
[2018-02-20] MEDS: Loratadine 10 MG Tab PO SCH (10:03)
[2018-02-20] MEDS: LORAZEPAM 0.5 MG PO SCH ×2 (10:05→14:11)
[2018-02-20 10:07] VITALS: BP 130/64
--- NOTE | 2018-02-20 10:50 | CR ---
Abdominal series: Frontal view of the chest was obtained as well as supine and upright views of the abdomen. Comparison: Prior abdominal x-ray of 08/20/16. Heart size and mediastinum are normal. Sternotomy noted for CABG. Lungs are clear without acute parenchymal change. Minimal apical pleural thickening is noted. Bowel gas pattern is normal. Calcifications are seen within the pelvis which are compatible with phleboliths. Minimal increased stool within the colon is seen. Vascular calcification is noted. Surgical clips are seen within the right groin. No free air is seen. Impression: 1. Incidental findings as noted above. 2. Minimally increased stool within the colon. 3. Nothing acute is seen on abdominal series. Diagnostic code #2
--- NOTE | 2018-02-20 13:06 | PCM.PN ---
- General Info Date of Service: 02/20/18 Admission Dx/Problem (Free Text): Admission Diagnosis/Problem Admission Diagnosis/Problem Chest pain Subjective Update: In to see Kait. She is lying in bed and family is at bedside. She is awaiting the second set of pictures for her myocardial perfusion scan. She is not having any chest pain. She appears somewhat anxious initially but does settle down a bit after we talk for awhile. She has no complaints or concerns currently. No nursing concerns. Functional Status: Reports: Pain Controlled, Tolerating Diet, Ambulating, Urinating. Denies: New Symptoms - Review of Systems General: Reports: Weakness (chronic ). Denies: Fever, Fatigue, Malaise, Chills HEENT: Reports: No Symptoms, Contact Lenses. Denies: Eye Pain, Sinus Congestion , Sore Throat Pulmonary: Reports: No Symptoms. Denies: Shortness of Breath, Cough, Sputum, Wheezing Cardiovascular: Reports: No Symptoms. Denies: Chest Pain, Palpitations, Dyspnea on Exertion, Lightheadedness Gastrointestinal: Reports: No Symptoms. Denies: Abdominal Pain, Constipation, Decreased Appetite, Diarrhea, Nausea, Vomiting Genitourinary: Reports: No Symptoms Musculoskeletal: Reports: Back Pain, Joint Pain Skin: Reports: No Symptoms Neurological: Reports: Difficulty Walking (chronic ), Weakness Psychiatric: Reports: No Symptoms - Patient Data Vitals - Most Recent: Last Vital Signs Temp 98.1 F 02/20/18 09:59 Pulse 104 H 02/20/18 09:59 Resp 14 02/20/18 09:59 BP 130/64 02/20/18 09:59 Pulse Ox 97 02/20/18 09:59 Weight - Most Recent: 115 lb 6.4 oz I&O - Last 24 Hours: Intake & Output 02/19/18 02/20/18 02/20/18 22:59 06:59 14:59 Intake Total 920 500 120 Output Total 1400 125 Balance -480 375 120 Lab Results Last 24 Hours: Laboratory Results - last 24 hr 02/19/18 02/20/18 Range/Units 18:11 06:45 Troponin I < 0.017 (0.00-0.056) ng/mL Triglycerides 65 (<150) mg/dL Cholesterol 296 H (<200) mg/dL LDL Cholesterol Direct 200 H* (<100) mg/dL HDL Cholesterol 75.0 H (40-59) mg/dL [place] Results Last 24 Hours: Microbiology 02/18/18 19:13 Urine Culture - Final Urine, Clean Catch MIXED FADI SUGGESTIVE OF CONTAMINATION. Med Orders - Current: Current Medications Acetaminophen (Tylenol) 650 mg PO Q6H PRN PRN Reason: Pain/Fever Last Admin: 02/20/18 10:03 Dose: 650 mg Al Hydroxide/Mg Hydroxide (Mag-Al Plus) 30 ml PO Q4H PRN PRN Reason: Heartburn Last Admin: 02/19/18 02:00 Dose: 30 ml Amlodipine Besylate (Norvasc) 10 mg PO BEDTIME [facility] Last Admin: 02/19/18 21:00 Dose: 10 mg Aspirin (Halfprin) 81 mg PO BEDTIME [facility] Last Admin: 02/19/18 21:01 Dose: 81 mg Clopidogrel Bisulfate (Plavix) 75 mg PO DAILY [facility] Last Admin: 02/20/18 10:03 Dose: 75 mg Enoxaparin Sodium (Lovenox) 40 mg SUBCUT Q24H [facility] Last Admin: 02/19/18 14:26 Dose: 40 mg Hydralazine HCl (Apresoline) 20 mg IVPUSH Q6H PRN PRN Reason: Hypertension Last Admin: 02/19/18 08:19 Dose: 20 mg Loratadine (Claritin) 10 mg PO DAILY [facility] Last Admin: 02/20/18 10:03 Dose: 10 mg Lorazepam (Ativan) 0.5 mg PO TID [facility] Last Admin: 02/20/18 10:05 Dose: Not Given Metoprolol Tartrate (Lopressor) 100 mg PO BID [facility] Last Admin: 02/19/18 10:08 Dose: 100 mg Morphine Sulfate (Morphine) 1 mg IVPUSH Q8H PRN PRN Reason: Pain (moderate 4-6) Nitroglycerin (Nitrostat) 0.4 mg SL Q5M PRN PRN Reason: Chest Pain Ondansetron HCl (Zofran) 4 mg IVPUSH Q8H PRN PRN Reason: Nausea/Vomiting Pantoprazole Sodium (Protonix) 40 mg PO DAILY@0700 [facility] Last Admin: 02/20/18 06:55 Dose: Not Given Sodium Chloride (Saline Flush) 10 ml FLUSH ASDIRECTED PRN PRN Reason: Keep Vein Open Last Admin: 02/18/18 18:33 Dose: 10 ml Temazepam (Restoril) 7.5 mg PO BEDTIME PRN PRN Reason: Insomnia Tramadol HCl (Ultram) 50 mg PO BID PRN PRN Reason: Pain Triamterene/HCTZ (Dyazide 25-37.5 Mg) 1 each PO DAILY [facility] Last Admin: 02/20/18 10:03 Dose: 1 each Discontinued Medications Amlodipine Besylate (Norvasc) 10 mg PO NOW STA Stop: 02/19/18 06:23 Last Admin: 02/19/18 06:31 Dose: 10 mg Aspirin (Aspirin) 243 mg PO ONETIME ONE Stop: 02/18/18 18:20 Last Admin: 02/18/18 18:31 Dose: 243 mg Al Hydroxide/Mg Hydroxide 30 (ml/ Lidocaine HCl 15 ml) 0 ml PO ONETIME ONE Stop: 02/18/18 18:20 Last Admin: 02/18/18 18:31 Dose: 45 ml Enoxaparin Sodium (Lovenox) 55 mg SUBCUT ONETIME ONE Stop: 02/18/18 20:45 Last Admin: 02/18/18 21:53 Dose: 55 mg Lactated Ringer's (Ringers, Lactated) 1,000 mls @ 75 mls/hr IV ASDIRECTED [facility] Stop: 02/19/18 05:00 Last Admin: 02/18/18 21:48 Dose: 75 mls/hr Lorazepam (Ativan) 0.5 mg IVPUSH Q12H PRN PRN Reason: Anxiety Lorazepam (Ativan) 0.5 mg PO Q12H PRN PRN Reason: Anxiety Nitroglycerin (Nitro-Bid 2%) 1 gm TOP ONETIME ONE Stop: 02/18/18 20:16 Last Admin: 02/18/18 20:30 Dose: 1 gm Non-Formulary Medication (Lorazepam [Ativan]) 0.5 mg PO Q8HR PRN PRN Reason: Anxiety Non-Formulary Medication (Ubidecarenone) 100 mg PO DAILY [facility] Ondansetron HCl (Zofran) 4 mg IVPUSH ONETIME ONE Stop: 02/18/18 20:06 Last Admin: 02/18/18 20:10 Dose: Not Given Regadenoson (Lexiscan) 0.4 mg IVPUSH ONETIME ONE Stop: 02/20/18 07:34 Last Admin: 02/20/18 07:51 Dose: 0.4 mg Tramadol HCl (Ultram) 50 mg PO Q8H PRN PRN Reason: Pain - Exam Quality Assessment: DVT Prophylaxis General: Alert, Oriented, Cooperative, No Acute Distress HEENT: Pupils Equal, Pupils Reactive, EOMI, Mucous Membr. Moist/[place] Neck: Supple, Trachea Midline, No JVD Lungs: Clear to Auscultation, Normal Respiratory Effort Cardiovascular: Regular Rate, Regular Rhythm GI/Abdominal Exam: Normal Bowel Sounds, Soft, Non-Tender, No Distention, No Abnormal Bruit (Female) Exam: Deferred Back Exam: Normal Inspection, Full Range of Motion Extremities: Normal Inspection, Normal Range of Motion, Non-Tender, No Pedal Edema, Normal Capillary Refill Peripheral Pulses: 2+: Radial (L), Radial (R), Posterior Tibial (L), Posterior Tibial (R), Dorsalis Pedis (L), Dorsalis Pedis (R) Skin: Warm, Dry, Intact Neurological: No New Focal Deficit Psy/Mental Status: Alert, Normal Affect, Normal Mood - Problem List & Annotations (1) Chest pain, rule out acute myocardial infarction SNOMED Code(s): 83411562 Code(s): R07.9 - CHEST PAIN, UNSPECIFIED Status: Acute Priority: High Current Visit: Yes (2) Atypical chest pain SNOMED Code(s): 110619542 Code(s): R07.89 - OTHER CHEST PAIN Status: Acute Priority: High Current Visit: Yes (3) HTN (hypertension) SNOMED Code(s): 80619250 Code(s): I10 - ESSENTIAL (PRIMARY) HYPERTENSION Status: Chronic Priority : Medium Current Visit: Yes Qualifiers: Hypertension type: unspecified Qualified Code(s): I10 - Essential (primary ) hypertension (4) HLD (hyperlipidemia) SNOMED Code(s): 80721786 Code(s): E78.5 - HYPERLIPIDEMIA, UNSPECIFIED Status: Chronic Priority: Medium Current Visit: Yes Qualifiers: Hyperlipidemia type: unspecified Qualified Code(s): E78.5 - Hyperlipidemia , unspecified (5) GERD (gastroesophageal reflux disease) SNOMED Code(s): 129308213 Code(s): K21.9 - GASTRO-ESOPHAGEAL REFLUX DISEASE WITHOUT ESOPHAGITIS Status: Chronic Priority: Medium Current Visit: No Qualifiers: Esophagitis presence: esophagitis presence not specified Qualified Code(s) : K21.9 - Gastro-esophageal reflux disease without esophagitis (6) Anxiety SNOMED Code(s): 42418480 Code(s): F41.9 - ANXIETY DISORDER, UNSPECIFIED Status: Chronic Priority: High Current Visit: Yes - Problem List Review Problem List Initiated/Reviewed/Updated: Yes - My Orders Last 24 Hours: My Active Orders 02/20/18 07:54 Myocardial Perf Spect Multi [NM] Routine - Plan Plan:: Impression: Atypical Chest Pain, hx of CAD reportedly [place] S/P CABG x4, remote stress test Functional capacity, query METS 4 S/P 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
--- NOTE | 2018-02-20 13:06 | PCM.PRNOTE ---
- Free Text/Narrative Note: Date of service: 02/20/18 Procedure: Regadenoson (Lexiscan) stress test Ordering provider: Dr. Jasmine Stratton Indication: Atypical chest pain Baseline EKG: Sinus tachycardia at [address] The patient recieved Regadenoson (Lexiscan) 0.4 mg IV and a nuclear agent using standard protocol. The patient was seated for the procedure. Lexiscan test: Heart rate: 119 bpm; Blood pressure: 125/54 mm Hg; Oxygenation: 98%. EKG changes of ischemia during stress test or in recovery: None Arrhythmias: Bigeminal PVCs throughout most of test. Adverse effects of Lexiscan: Lightheadedness and palpitations which spontaneously resolved at completion of test. Test terminated due to: end of protocol Impression: 1. Negative Lexiscan stress test ECG for ischemia. 2. Baseline EKG depression in inferior leads which is an interval change from prior 12-lead EKGs on floor. 3. Somewhat difficult to interpret study as patient had frequent PVCs throughout test 4. Nuclear images pending and will be reported separately per Radiologist.
--- NOTE | 2018-02-20 13:28 | NM ---
Cardiolite cardiac exam Technique: I have data statement patient was stressed utilizing Lexiscan protocol. Stress dose of technetium 99m Cardiolite was 10.6 mCi. Rest dose was 30.8 mCi. SPECT imaging was obtained in 3 planes for both portions of the study. Study was also gated. Low-dose chest CT performed to allow for attenuation correction. Comparison: Prior Cardiolite cardiac exam of 06/17/11. Findings: Activity within the left ventricular myocardium is homogeneous between rest and stress study. No fixed or reversible type defects are seen. Ejection fraction is above 70%. Wall thickening and wall motion are normal. Impression: 1. No abnormality is identified on Cardiolite portion of cardiac stress test. No significant change is seen from previous study. Diagnostic code #1
[2018-02-20] MEDS: Enoxaparin 40 MG/0.4 ML Syringe SUBCUT SCH (13:31)
--- NOTE | 2018-02-20 14:23 | PCM.DCSUM1 ---
Discharge Summary - Hospital Course HPI Initial Comments: 82-year-old female PMH of CAD S/P CABG, 10 years [employer] presents to the ED complaining of chest pressure for several hours. Associated with nausea, and "fluttering sensation" in her chest. She states symptoms started this morning at about 6:00 when she awoke. She has noted a light pressure sensation in her chest. The symptoms she currently experiencing are similar to previous heart attack that took place 10 years ago prior to bypass. She has taken all her home medications as prescribed. 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 Diagnosis: Stroke: No - Discharge Data Discharge Date: 02/20/18 (Admit date: 02/18/18) Discharge Disposition: Home, Self-Care 01 Condition: Stable - Discharge Diagnosis/Problem(s) (1) Chest pain, rule out acute myocardial infarction SNOMED Code(s): 89797922 ICD Code: R07.9 - CHEST PAIN, UNSPECIFIED Status: Acute Priority: High Current Visit: Yes (2) Atypical chest pain SNOMED Code(s): 176886086 ICD Code: R07.89 - OTHER CHEST PAIN Status: Resolved Priority: High Current Visit: Yes (3) HTN (hypertension) SNOMED Code(s): 76469036 ICD Code: I10 - ESSENTIAL (PRIMARY) HYPERTENSION Status: Chronic Priority : Medium Current Visit: Yes Qualifiers: Hypertension type: unspecified Qualified Code(s): I10 - Essential (primary ) hypertension (4) HLD (hyperlipidemia) SNOMED Code(s): 01317314 ICD Code: E78.5 - HYPERLIPIDEMIA, UNSPECIFIED Status: Chronic Priority: Medium Current Visit: Yes Qualifiers: Hyperlipidemia type: unspecified Qualified Code(s): E78.5 - Hyperlipidemia , unspecified (5) GERD (gastroesophageal reflux disease) SNOMED Code(s): 222788146 ICD Code: K21.9 - GASTRO-ESOPHAGEAL REFLUX DISEASE WITHOUT ESOPHAGITIS Status: Chronic Priority: Medium Current Visit: No Qualifiers: Esophagitis presence: esophagitis presence not specified Qualified Code(s) : K21.9 - Gastro-esophageal reflux disease without esophagitis (6) Anxiety SNOMED Code(s): 75795276 ICD Code: F41.9 - ANXIETY DISORDER, UNSPECIFIED Status: Chronic Priority : High Current Visit: Yes - Patient Summary/Data Consults: Consultations 02/19/18 13:37 Consult to Dietary [Consult to Breaker Hand] [CONS] Routine 02/19/18 13:42 Consult to Pulmonary Rehabilitation [CONS] Routine Labs Pending at D/C: Urine Culture Recommended Follow-up Testing/Procedures: Follow-up with PCP within 7-10 days of discharge, sooner if needed Follow-up with [facility]. Contacted Mar Sr PA-C via phone and she agreed to see her soon. Hospital Course: Impression: Atypical Chest Pain, hx of CAD reportedly [place] S/P CABG x4, remote stress test Functional capacity, query METS 4 S/P 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 Code status: DNR/DNI; PCP: Dr. Bennett Overall Kait did ok. Her chest pain resolved. She was started on Norvasc 10mg at bedtime and Dyazide daily. Her stress test was negative for ischemia however over her stay she was noted to have some ST segment depression at baseline. This was especially true on the inferior leads just prior to her stress test. During her test she developed a bigeminal unifocal PVC rhythm which persisted throughout and then resolved after. She denied any chest pain or shortness of breath aside from the usual symptoms just after injection of the lexiscan. Her lipid panel revealed a LDL of 200, HDL of 75, and Triglycerides of 75. She unfortunately has reportedly had negative reactions to statins and this should be addressed further with her PCP. Mar Sr PA-C was contacted as the patient reported she had just seen her and Mar reported it was actually in November. She advised outpatient follow-up with her office in the near future. This was discussed with the family and they stated they will contact her office and follow-up accordingly. She was advised to follow-up with her PCP within 7-10 days. She should take her BP BID and keep it in a journal, bringing this with to all medical appointments. She will be discharged home with her family today. - Patient Instructions Diet: Heart Healthy Diet, Low Sodium Activity: As Tolerated Driving: Do Not Drive Showering/Bathing: November Shower Notify Provider of: Fever, Increased Pain, Nausea and/or Vomiting - Discharge Plan *PRESCRIPTION DRUG MONITORING PROGRAM REVIEWED*: No *COPY OF PRESCRIPTION DRUG MONITORING REPORT IN PATIENT HARDEEP: No Prescriptions/Med Rec: amLODIPine Besylate [Norvasc] 10 mg PO BEDTIME #20 tablet HCTZ/Triamterene [Dyazide 25-37.5 MG] 1 each PO DAILY #20 cap Home Medications: Home Meds Aspirin [Shaylee Chewable Aspirin] 81 mg PO BEDTIME 01/08/14 [History] Cetirizine [ZyrTEC] 10 mg PO DAILY 01/08/14 [History] Clopidogrel [Plavix] 75 mg PO DAILY 01/08/14 [History] Isosorbide Mononitrate [Imdur] 30 mg PO DAILY 01/08/14 [History] LORazepam [Ativan] 0.5 mg PO Q8HR PRN 01/16/15 [History] Cholecalciferol (Vitamin D3) [Vitamin D3] 2,000 unit PO DAILY 05/09/16 [History] Metoprolol Tartrate 100 mg PO BID 05/09/16 [History] traMADol HCl [Tramadol HCl] 50 mg PO BID PRN 05/09/16 [History] Pantoprazole Sodium [Protonix] 40 mg PO DAILY #90 suspdr.pkt 05/10/16 [Rx] Ubidecarenone [Co Q-10] 100 mg PO DAILY 02/18/18 [History] Biotin [Hard Nails] 5,000 mcg PO DAILY 02/19/18 [History] Furosemide 10 mg PO DAILY 02/19/18 [History] HCTZ/Triamterene [Dyazide 25-37.5 MG] 1 each PO DAILY #20 cap 02/20/18 [Rx] amLODIPine Besylate [Norvasc] 10 mg PO BEDTIME #20 tablet 02/20/18 [Rx] Patient Handouts: Cholesterol, Gect-hb-[id number], Low-Sodium Eating Plan, Fat and Cholesterol Restricted Diet, Vexs-jp-[id number], Angina Pectoris, Phns-ln-[id number] Forms: ED Department Discharge Referrals: William Bennett Jr, MD [Primary Care Provider] - - Discharge Summary/Plan Comment DC Time >30 min.: Yes (45 mins) - General Info Date of Service: 02/20/18 Admission Dx/Problem (Free Text: Admission Diagnosis/Problem Admission Diagnosis/Problem Chest pain Subjective Update: In to see Akit. She is lying in bed and family is at bedside. She is awaiting the second set of pictures for her myocardial perfusion scan. She is not having any chest pain. She appears somewhat anxious initially but does settle down a bit after we talk for awhile. She has no complaints or concerns currently. No nursing concerns. Stress test was negative although she was noted to have increased inferior lead ST segment depression at baseline. Contacted Mar Sr PA-C with [facility] and discussed patient. Will increase Imdur and have follow-up with them fairly soon. She will be discharged today. Functional Status: Reports: Pain Controlled, Tolerating Diet, Ambulating, Urinating. Denies: New Symptoms - Review of Systems General: Reports: Weakness (chronic ). Denies: Fever, Fatigue HEENT: Reports: No Symptoms. Denies: Eye Pain, Sinus Congestion, Sore Throat Pulmonary: Denies: Shortness of Breath, Cough, Sputum, Wheezing Cardiovascular: Reports: No Symptoms. Denies: Chest Pain, Palpitations, Dyspnea on Exertion, Edema, Lightheadedness Gastrointestinal: Reports: No Symptoms. Denies: Abdominal Pain, Constipation, Diarrhea, Nausea, Vomiting Genitourinary: Reports: No Symptoms Musculoskeletal: Reports: Back Pain, Joint Pain Skin: Reports: No Symptoms Neurological: Reports: Difficulty Walking (chronic ) Psychiatric: Reports: No Symptoms - Patient Data Vitals - Most Recent: Last Vital Signs Temp 98.1 F 02/20/18 09:59 Pulse 104 H 02/20/18 09:59 Resp 14 02/20/18 09:59 BP 130/64 02/20/18 09:59 Pulse Ox 97 02/20/18 09:59 Weight - Most Recent: 115 lb 6.4 oz I&O - Last 24 hours: Intake & Output 02/19/18 02/20/18 02/20/18 22:59 06:59 14:59 Intake Total 920 500 120 Output Total 1400 125 Balance -480 375 120 Lab Results - Last 24 hrs: Laboratory Results - last 24 hr 02/19/18 02/20/18 Range/Units 18:11 06:45 Troponin I < 0.017 (0.00-0.056) ng/mL Triglycerides 65 (<150) mg/dL Cholesterol 296 H (<200) mg/dL LDL Cholesterol Direct 200 H* (<100) mg/dL HDL Cholesterol 75.0 H (40-59) mg/dL [facility]REZ Results - Last 24 hrs: Microbiology 02/18/18 19:13 Urine Culture - Final Urine, Clean Catch MIXED FADI SUGGESTIVE OF CONTAMINATION. Med Orders - Current: Current Medications Acetaminophen (Tylenol) 650 mg PO Q6H PRN PRN Reason: Pain/Fever Last Admin: 02/20/18 10:03 Dose: 650 mg Al Hydroxide/Mg Hydroxide (Mag-Al Plus) 30 ml PO Q4H PRN PRN Reason: Heartburn Last Admin: 02/19/18 02:00 Dose: 30 ml Amlodipine Besylate (Norvasc) 10 mg PO BEDTIME [facility] Last Admin: 02/19/18 21:00 Dose: 10 mg Aspirin (Halfprin) 81 mg PO BEDTIME [facility] Last Admin: 02/19/18 21:01 Dose: 81 mg Clopidogrel Bisulfate (Plavix) 75 mg PO DAILY [facility] Last Admin: 02/20/18 10:03 Dose: 75 mg Enoxaparin Sodium (Lovenox) 40 mg SUBCUT Q24H [facility] Last Admin: 02/20/18 13:31 Dose: 40 mg Hydralazine HCl (Apresoline) 20 mg IVPUSH Q6H PRN PRN Reason: Hypertension Last Admin: 02/19/18 08:19 Dose: 20 mg Loratadine (Claritin) 10 mg PO DAILY [facility] Last Admin: 02/20/18 10:03 Dose: 10 mg Lorazepam (Ativan) 0.5 mg PO TID [facility] Last Admin: 02/20/18 14:11 Dose: Not Given Metoprolol Tartrate (Lopressor) 100 mg PO BID [facility] Last Admin: 02/19/18 10:08 Dose: 100 mg Morphine Sulfate (Morphine) 1 mg IVPUSH Q8H PRN PRN Reason: Pain (moderate 4-6) Nitroglycerin (Nitrostat) 0.4 mg SL Q5M PRN PRN Reason: Chest Pain Ondansetron HCl (Zofran) 4 mg IVPUSH Q8H PRN PRN Reason: Nausea/Vomiting Pantoprazole Sodium (Protonix) 40 mg PO DAILY@0700 [facility] Last Admin: 02/20/18 06:55 Dose: Not Given Sodium Chloride (Saline Flush) 10 ml FLUSH ASDIRECTED PRN PRN Reason: Keep Vein Open Last Admin: 02/18/18 18:33 Dose: 10 ml Temazepam (Restoril) 7.5 mg PO BEDTIME PRN PRN Reason: Insomnia Tramadol HCl (Ultram) 50 mg PO BID PRN PRN Reason: Pain Triamterene/HCTZ (Dyazide 25-37.5 Mg) 1 each PO DAILY [facility] Last Admin: 02/20/18 10:03 Dose: 1 each Discontinued Medications Amlodipine Besylate (Norvasc) 10 mg PO NOW STA Stop: 02/19/18 06:23 Last Admin: 02/19/18 06:31 Dose: 10 mg Aspirin (Aspirin) 243 mg PO ONETIME ONE Stop: 02/18/18 18:20 Last Admin: 02/18/18 18:31 Dose: 243 mg Al Hydroxide/Mg Hydroxide 30 (ml/ Lidocaine HCl 15 ml) 0 ml PO ONETIME ONE Stop: 02/18/18 18:20 Last Admin: 02/18/18 18:31 Dose: 45 ml Enoxaparin Sodium (Lovenox) 55 mg SUBCUT ONETIME ONE Stop: 02/18/18 20:45 Last Admin: 02/18/18 21:53 Dose: 55 mg Lactated Ringer's (Ringers, Lactated) 1,000 mls @ 75 mls/hr IV ASDIRECTED ON [facility] Stop: 02/19/18 05:00 Last Admin: 02/18/18 21:48 Dose: 75 mls/hr Lorazepam (Ativan) 0.5 mg IVPUSH Q12H PRN PRN Reason: Anxiety Lorazepam (Ativan) 0.5 mg PO Q12H PRN PRN Reason: Anxiety Nitroglycerin (Nitro-Bid 2%) 1 gm TOP ONETIME ONE Stop: 02/18/18 20:16 Last Admin: 02/18/18 20:30 Dose: 1 gm Non-Formulary Medication (Lorazepam [Ativan]) 0.5 mg PO Q8HR PRN PRN Reason: Anxiety Non-Formulary Medication (Ubidecarenone) 100 mg PO DAILY [facility] Ondansetron HCl (Zofran) 4 mg IVPUSH ONETIME ONE Stop: 02/18/18 20:06 Last Admin: 02/18/18 20:10 Dose: Not Given Regadenoson (Lexiscan) 0.4 mg IVPUSH ONETIME ONE Stop: 02/20/18 07:34 Last Admin: 02/20/18 07:51 Dose: 0.4 mg Tramadol HCl (Ultram) 50 mg PO Q8H PRN PRN Reason: Pain - Exam Quality Assessment: Reports: DVT Prophylaxis General: Reports: Alert, Oriented, Cooperative, No Acute Distress HEENT: Reports: Pupils Equal, Pupils Reactive, EOMI, Mucous Membr. Moist/[place] Neck: Reports: Supple, Trachea Midline, No JVD Lungs: Reports: Clear to Auscultation, Normal Respiratory Effort Cardiovascular: Reports: Regular Rate, Regular Rhythm GI/Abdominal Exam: Normal Bowel Sounds, Soft, Non-Tender, No Distention, No Abnormal Bruit (Female) Exam: Deferred Rectal (Female) Exam: Deferred Back Exam: Reports: Normal Inspection Extremities: Normal Inspection, Normal Range of Motion, Non-Tender, No Pedal Edema, Normal Capillary Refill Skin: Reports: Warm, Dry, Intact Neurological: Reports: No New Focal Deficit Psy/Mental Status: Reports: Alert, Normal Affect, Normal Mood
[2018-02-21] MEDS ORDERED: Isosorbide Mononitrate 60 MG Tab.ER PO SCH (09:00)
== END 2018-02-20 17:17 | disposition home or self-care (01) ==
LOC: JD.ED 17:41 → JD.MS 20:34
PROVIDERS: ADMIT Internal Medicine Cardiovascular Disease; ATTEND Internal Medicine Cardiovascular Disease
DX: R07.89 Other chest pain (principal); I10 Essential (primary) hypertension; I25.10 Atherosclerotic heart disease of native coronary artery without angina pectoris; E78.5 Hyperlipidemia, unspecified; K21.9 Gastro-esophageal reflux disease without esophagitis; F41.1 Generalized anxiety disorder; I69.30 Unspecified sequelae of cerebral infarction; Z95.1 Presence of aortocoronary bypass graft; Z79.82 Long term (current) use of aspirin; Z79.899 Other long term (current) drug therapy; Z88.0 Allergy status to penicillin; Z88.2 Allergy status to sulfonamides; Z88.8 Allergy status to other drugs, medicaments and biological substances
CPT/HCPCS: 36415; 74022; 78452; 80048; 80053; 80061; 81001; 83690; 83735; 84484; 85007; 85025; 85027; 85610; 85730; 86140; 87086; 93005; 93017; 96361; 96372; 96374; 96375; 96376; 99285; A9270; A9500; G0378; J0360; J1650; J2785; J7050; J7120; 93010

== ENCOUNTER 2021-04-13 06:39 | Day surgery (SDC) | payer OTHER ==
[~2021-04-13 06:39] MED LIST: Lactated Ringers 1,000 ML IV SCH; Lidocaine 1%/Sod Bicarbonate in NS 8.4% 1 ML Syringe IDERM PRN; Morphine 8 MG, EPINEPHrine 0.3 MG, Cefuroxime 750 MG, Ketorolac 30 MG, Sodium Chloride ... PRN; Sodium Chloride 0.9% 10 ML Syringe FLUSH PRN
[2021-04-13] MEDS ORDERED: Vancomycin 1 GM SDV ONE (07:19)
--- NOTE | 2021-04-13 07:29 | PCM.PREANE ---
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), Weakness (right hand) Other: Reports: Easy Bleeding, Easy Bruising - Physical Assessment NPO Status Date: 04/12/21 NPO Status Time: 00:00 Height: 1.5 m Weight: 52.6 kg ASA Class: 3 Mental Status: Alert & Oriented x3 Airway Class: Mallampati = 2 Dentition: Reports: Normal Dentition, [place](s) Thyro-Mental Finger Breadths: 3 Mouth Opening Finger Breadths: 2 ROM/Head Extension: Full Lungs: Clear to Auscultation, Normal Respiratory Effort Cardiovascular: Regular Rate, Regular Rhythm - Imaging/EKG Impressions: EKG LBBB SR rate63 IVCD - Allergies Allergies/Adverse Reactions: Allergies Allergy/AdvReac Type Severity Reaction Status Date / Time oxycodone [From Percocet] Allergy Nausea and Verified 04/10/21 09:45 Vomiting Penicillins Allergy Rash Verified 02/18/18 22:40 Sulfa (Sulfonamide Allergy Rash Verified 02/18/18 22:40 Antibiotics) atorvastatin [From Lipitor] AdvReac Muscle Verified 02/20/18 09:21 Weakness ramipril AdvReac Cough Verified 02/20/18 09:21 - Anesthesia Plan Pre-Op Medication Ordered: Beta Radha Beta Radha: Metoprolol Med Last Dose Date: 04/13/21 Med Last Dose Time: 05:45 - Acknowledgements Anesthesia Type Planned: Spinal Pt an Appropriate Candidate for the Planned Anesthesia: Yes Alternatives and Risks of Anesthesia Discussed w Pt/Guardian: Yes Pt/Guardian Understands and Agrees with Anesthesia Plan: Yes PreAnesthesia Questionnaire HEENT History: Reports: Allergic Rhinitis Other HEENT History: wears glasses Cardiovascular History: Reports: Heart Murmur, High Cholesterol, Other (See Below) Other Cardiovascular History: CAD Gastrointestinal History: Reports: GERD, Hiatal Hernia, Irritable Bowel Syndrome Genitourinary History: Reports: Urinary Incontinence Other Genitourinary History: UTI, dysuria 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: Other OB/BYN History: hysterectomy, section, vaginal atrophy Musculoskeletal History: Reports: Arthritis, Osteoporosis Neurological History: Reports: CVA, Other (See Below) Other Neuro History: cva 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 hand Psychiatric History: Reports: Depression Hematologic History: Reports: Blood Transfusion(s) Oncologic (Cancer) History: Reports: Basal Cell Carcinoma, Other (See Below) Other Oncologic History: to the face Dermatologic History: Reports: Other (See Below) Other Dermatologic History: bruising, dry skin, hair loss - Infectious Disease History Infectious Disease History: Reports: Chicken Pox, Shingles - Past Surgical History HEENT Surgical History: Reports: Cataract Surgery, Tonsillectomy Cardiovascular Surgical History: Reports: Coronary Artery Bypass GI Surgical History: Reports: Colonoscopy, EGD Other Musculoskeletal Surgeries/Procedures:: bunionectomy, right hip pain, a rthritis - SUBSTANCE USE Tobacco Use Status *Q: Never Tobacco User Tobacco Use Within Last Twelve Months: No Second Hand Smoke Exposure: No Days Per Week of Alcohol Use: 1 Number of Drinks Per Day: 1 Total Drinks Per Week: 1 Recreational Drug Use History: No - HOME MEDS Home Medications: Home Meds Cetirizine [ZyrTEC] 10 mg PO DAILY 01/08/14 [History] Clopidogrel [Plavix] 75 mg PO DAILY 01/08/14 [History] Isosorbide Mononitrate [Imdur] 30 mg PO DAILY 01/08/14 [History] LORazepam [Ativan] 0.5 mg PO Q8HR PRN 01/16/15 [History] Cholecalciferol (Vitamin D3) [Vitamin D3] 2,000 unit PO DAILY 05/09/16 [History] Metoprolol Tartrate 100 mg PO BID 05/09/16 [History] Pantoprazole Sodium [Protonix] 40 mg PO DAILY #90 suspdr.pkt 05/10/16 [Rx] Ubidecarenone [Co Q-10] 100 mg PO DAILY 02/18/18 [History] Biotin [Hard Nails] 5,000 mcg PO DAILY 02/19/18 [History] Furosemide 10 mg PO DAILY 02/19/18 [History] HCTZ/Triamterene [Dyazide 25-37.5 MG] 1 each PO DAILY #20 cap 02/20/18 [Rx] amLODIPine Besylate [Norvasc] 10 mg PO BEDTIME #20 tablet 02/20/18 [Rx] Aspirin [Aspirin EC] 325 mg PO DAILY #35 tablet. 04/10/21 [Rx] Hydrocodone/Acetaminophen [HYDROcodone-Acetaminophen 5-325 MG] 1 - 2 each PO Q6H PRN #40 tablet 04/10/21 [Rx] - CURRENT (IN HOUSE) MEDS Current Meds: Current Medications Morphine Sulfate 8 mg/Epinephrine HCl 0.3 mg/Cefuroxime Sodium 750 mg/Ketorolac Tromethamine 30 mg/Sodium Chloride 7.9 ml 0 mg .XX ASDIRECTED PRN PRN Reason: Pain Stop: 04/13/21 16:00 Lactated Ringer's (Ringers, Lactated) 1,000 mls @ 125 mls/hr IV ASDIRECTED TAWNYA Stop: 04/13/21 23:00 Lidocaine/Sodium Bicarbonate (Lidocaine 1%/Sod Bicarbonate In Ns 8.4% 1 Ml Syringe) 0.25 ml IDERM ONETIME PRN PRN Reason: Prior to IV Start Stop: 04/13/21 18:00 Sodium Chloride (Sodium Chloride 0.9% 10 Ml Syringe) 10 ml FLUSH ASDIRECTED PRN PRN Reason: Keep Vein Open Stop: 04/13/21 18:00 Discontinued Medications Morphine Sulfate 8 mg/Epinephrine HCl 0.3 mg/Cefuroxime Sodium 750 mg/Ketorolac Tromethamine 30 mg/Sodium Chloride 7.9 ml 0 mg .XX ASDIRECTED PRN PRN Reason: Pain Stop: 04/13/21 16:00 Tranexamic Acid (Tranexamic Acid 1,000 Mg/10 Ml Amp) Confirm Administered Dose 1,000 mg .ROUTE .STK-MED ONE Stop: 04/13/21 07:20 Vancomycin HCl (Vancomycin 1 Gm Sdv) Confirm Administered Dose 1 gm .ROUTE .STK- MED ONE Stop: 04/13/21 07:20
[2021-04-13] MEDS ORDERED: Ondansetron 4 MG/2 ML SDV ONE (07:40)
[2021-04-13] MEDS ORDERED: Midazolam 1 MG/ML 2 ML SDV ONE (07:40)
[2021-04-13] MEDS ORDERED: Lidocaine 1% 4 ML ONE (07:40)
[2021-04-13] MEDS ORDERED: fentaNYL 100 MCG/2 ML SDV ONE (07:40)
[2021-04-13] MEDS ORDERED: Propofol 200 MG/20 ML SDV ONE ×2 (07:40→08:48)
[2021-04-13] MEDS ORDERED: ceFAZolin 1 GM Vial ONE (07:48)
[2021-04-13] MEDS ORDERED: Lactated Ringers 1,000 ML ONE (08:47)
--- NOTE | 2021-04-13 09:50 | PCM.POSTAN ---
POST ANESTHESIA ASSESSMENT - MENTAL STATUS Mental Status: Somnolent - VITAL SIGNS Vital Signs: Last Vital Signs Temp 36.4 C 04/13/21 06:35 Pulse 57 L 04/13/21 06:35 Resp 16 04/13/21 06:35 BP 155/60 H 04/13/21 06:35 Pulse Ox 98 04/13/21 06:35 - RESPIRATORY Respiratory Status: Respiratory Rate WNL, Airway Patent, O2 Saturation Stable - CARDIOVASCULAR CV Status: Pulse Rate WNL, Blood Pressure Stable - GASTROINTESTINAL GI Status: No Symptoms - PAIN Pain Score: 0 - POST OP HYDRATION Hydration Status: Adequate & Stable - OBSERVATIONS Free Text/Narrative:: no anesthesia complications noted
--- NOTE | 2021-04-13 11:33 | CR ---
Pelvis and right hip: AP view of the pelvis was obtained as well as frog-leg lateral views of the right hip. Right hip prosthesis is seen. Components are aligned. Surgical clips are seen within the right hip. Vascular calcification is noted. Joint space narrowing is seen within the left hip. Osteopenia is noted. Impression: 1. Satisfactory postoperative radiographic appearance of recently placed right hip prosthesis. 2. Osteopenia and degenerative change within the left hip as well as vascular calcification. Diagnostic code #2
[2021-04-13] MEDS ORDERED: Acetaminophen/HYDROcodone 325-5 MG Tab PO ONE (12:00)
[2021-04-13 15:05] VITALS: BP 137/52; PULSE 54
--- NOTE | 2021-04-21 17:36 | PCM.OPNOTE ---
- General Post-Op/Procedure Note Date of Surgery/Procedure: 04/13/21 Operative Procedure(s): right total hip arthroplasty Pre Op Diagnosis: right hip osteoarthrosis Post-Op Diagnosis: Same Anesthesia Technique: Local, MAC, Spinal Primary Surgeon: Ishmael Arambula Anesthesia Provider: Ethan Payton Branch Employment Coordinator: Silvia Garcia Branch Employment Coordinator: Lakshmi Duffy EBJuan Ramon in mLs: 100 Complications: None Condition: Good Free Text/Narrative:: 50 36+2.5 3 stem
--- NOTE | 2021-04-27 11:49 | OR ---
DATE OF OPERATION: 04/13/2021 SURGEON: Ishmael Arambula MD OPERATION PERFORMED: Right total hip arthroplasty. PREOPERATIVE DIAGNOSIS: Right hip osteoarthrosis. POSTOPERATIVE DIAGNOSIS: Right hip osteoarthrosis. ANESTHESIA: Local MAC with spinal. ANESTHESIA PROVIDER: Ethan Payton CRNA. PIE ICER MACHINE: Silvia Garcia PA-C; and Lakshmi Duffy LPN. ESTIMATED BLOOD LOSS: 100 mL. COMPLICATIONS: None. CONDITION: Stable. IMPLANTS: 1. Dawn size 50 mm Tritanium II acetabular cup. 2. [place] size 36 +2.5 Biolox femoral head. 3. [place] size 3 Accolade II stem. DESCRIPTION OF PROCEDURE: The patient was identified in the preoperative holding area. Proper site was marked and identified by the surgeon. The patient was taken back to the operative theater, where after adequate anesthesia, the patient was placed in the left lateral decubitus position. Axillary roll was placed and all pegs were placed and well padded. The patient's gluteal fold was parallel to the floor. Right hip was then sterilely prepped and draped in the usual sterile fashion. OR right time-out was performed. The patient received 2 g IV Ancef. At this time, standard posterior incision was made. We did attempt to use the [employer] robotics, we had a computer malfunction, so we did not use it at this time. This was taken down to the IT band and gluteal fascia which was incised along the incisional length. The hip was then dislocated. Neck cut was completed and attention was turned to the acetabulum. Anterior and posterior acetabular retractors were placed. Circumferential removal of the labrum was done as well as the pulvinar. I was able to use a 48 reamer to medialize. At this time, a 50 mm Tritanium II acetabular cup was impacted into place in roughly 45 degrees of abduction and 20 degrees of anteversion. 36 mm flat liner was impacted into place and attention was turned to the femur. Box chisel was used out laterally. Starter awl was placed down the canal. Starting with the 0 broach, I was able to broach up to a size 3 which was found to be rotationally and vertically stable. A 36 +0 was trialed. It was found to be a minor amount short, so we trialed a 36 +2.5, which was found to have adequate tenriism of leg lengths and was stable throughout range of motion. At this time, trial implants were removed. Size 3 Accolade II stem was impacted into place, 36 +2.5 was impacted onto the stem, and hip was relocated. #5 Ethibond suture was used for closure of the short external rotators and capsule. 1 L pulse lavage irrigation with Ancef was irrigated through the hip along with 400 mL of IrriSept irrigation. Topical tranexamic acid and vancomycin powder were applied. Periarticular injection was completed. #2 barbed suture was used for closure of the IT band and gluteal fascia, 2-0 Vicryl was used subcutaneously and Prineo was used for skin closure. Patient was sent to the PACU in stable condition. DICTATION ENDS HERE MMODAL /[id number] MTDD
== END 2021-04-13 13:30 | disposition home or self-care (01) ==
LOC: JD.SDS 06:39
PROVIDERS: ATTEND Orthopaedic Surgery
DX: M16.11 Unilateral primary osteoarthritis, right hip (principal); I25.10 Atherosclerotic heart disease of native coronary artery without angina pectoris; K21.9 Gastro-esophageal reflux disease without esophagitis; E78.00 Pure hypercholesterolemia, unspecified; Z88.8 Allergy status to other drugs, medicaments and biological substances; Z88.0 Allergy status to penicillin; Z88.2 Allergy status to sulfonamides; Z79.82 Long term (current) use of aspirin; Z79.899 Other long term (current) drug therapy; Z98.890 Other specified postprocedural states; Z88.5 Allergy status to narcotic agent; Z86.73 Personal history of transient ischemic attack (TIA), and cerebral infarction without residual deficits
CPT/HCPCS: 27130; 36415; 73501; 85610; 85730; 86850; 86900; 86901; 97110; 97116; 97161; A9270; C1713; C1776; J0690; J2250; J2370; J2405; J2704; J3370; J7120; 01214; 99100; J3010